=== PATIENT | female | born 1975 | race Caucasian/White ===

== ENCOUNTER 2016-12-11 00:30 | Emergency (ER) | payer OTHER ==
[2016-12-11 01:43] LABS: BASOPHIL 0.3 % (0-2); EOSINOPHIL 0.8 % (0-5); HCT 36.2 % (37.0-47.0); HGB 11.7 g/dl (12.5-16.0); LYMPHOCYTE 36.8 % (15-48); MCH 26.4 pg (25.0-31.0); MCHC 32.3 g/dL (32.0-36.0); MCV 81.7 fL (78.0-100.0); MONOCYTE 7.2 % (0-12); MPV 10.3 fL (6.0-9.5); NEUTROPHIL 54.9 % (41-80); PLT 274 K/uL (150-400); RBC 4.43 M/uL (4.20-5.40); RDW 13.2 % (11.5-14.0); WBC 7.8 K/uL (4.0-10.5)
[2016-12-11 01:54] LABS: ALBUMIN 4.5 g/dL (3.5-5.0); BILIRUBIN - TOTAL 0.2 mg/dL (0.1-1.0); GLOBULIN (CALCULATION) 2.4 g/dL (2.2-4.2); POTASSIUM 3.8 mmol/L (3.5-5.1); TOTAL PROTEIN 6.9 g/dL (6.4-8.3)
[2016-12-11 02:56] LABS: BILIRUBIN NEGATIVE (NEGATIVE); BLOOD TRACE-INTACT Ery/uL (NEGATIVE); CLARITY SLIGHTLY HAZY (CLEAR); COLOR YELLOW (YELLOW); GLUCOSE (U) NORMAL (NORMAL); KETONE (U) NEGATIVE (NEGATIVE); LEUKOCYTES TRACE Leu/uL (NEGATIVE); NITRITE NEGATIVE (NEGATIVE); PROTEIN NEGATIVE (NEGATIVE); SPECIFIC GRAVITY >=1.030 (1.001-1.030); UROBILINOGEN 0.2 mg/dL (0.2-1.0)
[2016-12-11 03:01] LABS: BACTERIA TRACE; URINARY RBC RARE; URINARY WBC RARE
[2016-12-11 03:03] LABS: AMPHETAMINES NEGATIVE (NEGATIVE); BARBITURATES NEGATIVE (NEGATIVE); BENZODIAZEPINES NEGATIVE (NEGATIVE); COCAINE NEGATIVE (NEGATIVE); MARIJUANA (THC) NEGATIVE (NEGATIVE); METHADONE NEGATIVE (NEGATIVE); TRICYCLIC ANTIDEPRESSANT NEGATIVE (NEGATIVE)
== END 2016-12-11 03:05 | disposition home or self-care (01) ==
LOC: FER 00:30
PROVIDERS: Emergency Medicine
DX: E86.0 Dehydration (principal); R07.9 Chest pain, unspecified; K21.9 Gastro-esophageal reflux disease without esophagitis; Z82.3 Family history of stroke; Z79.899 Other long term (current) drug therapy
CPT/HCPCS: 36415; 80053; 80305; 81001; 85025

== ENCOUNTER 2021-01-28 21:04 | Emergency (ER) | payer OTHER ==
[~2021-01-28 21:04] MED LIST: COLESTID1 GM PO; CYCLOBENZAPRINE10 MG PO; DILTIAZEM 24HR240 M1 PO; ESTRACE1 MG PO; ETODOLAC500 MG PO; IBUPROFEN800 MG PO; LEVAQUIN750 MG PO; PEPCID AC20 MG PO
[2021-01-28 22:17] LABS: BILIRUBIN NEGATIVE (NEGATIVE); BLOOD NEGATIVE Ery/uL (NEGATIVE); CLARITY CLEAR (CLEAR); COLOR YELLOW (YELLOW); GLUCOSE (U) NORMAL (NORMAL); LEUKOCYTES NEGATIVE Leu/uL (NEGATIVE); NITRITE NEGATIVE (NEGATIVE); PROTEIN NEGATIVE (NEGATIVE); SPECIFIC GRAVITY 1.025 (1.001-1.030); UROBILINOGEN 0.2 mg/dL (0.2-1.0); pH 5.5 (5.0-9.0)
[2021-01-29] MEDS ORDERED: NORCO 5-325 TA1 EACH PO (01:04)
[2021-01-29] MEDS ORDERED: COLACE100 MG PO (01:04)
== END 2021-01-29 01:15 | disposition home or self-care (01) ==
LOC: FER 21:04
PROVIDERS: Emergency Medicine Emergency Medical Services
DX: R10.9 Unspecified abdominal pain (principal); Z90.49 Acquired absence of other specified parts of digestive tract; Z98.890 Other specified postprocedural states; Z79.810 Long term (current) use of selective estrogen receptor modulators (SERMs); Z79.899 Other long term (current) drug therapy
CPT/HCPCS: 81003

== ENCOUNTER → 2021-04-28 | Day surgery (SDC) | payer OTHER ==
[~2021-04-28] VITALS: Ht 162.6 cm; Wt 86.2 kg
[~2021-04-28] MED LIST changes: +COLACE100 MG PO; +NORCO 5-325 TA1 EACH PO
[2021-04-28 07:48] LABS: HGB 12.7 g/dl (12.5-16.0); MCH 26.5 pg (25.0-31.0); MCHC 31.8 g/dL (32.0-36.0); MCV 83.3 fL (78.0-100.0); MPV 10.6 fL (6.0-9.5); RBC 4.8 M/uL (4.20-5.40); RDW 13.2 % (11.5-14.0); WBC 6.8 K/uL (4.0-10.5)
[2021-04-28 08:01] LABS: ALBUMIN 3.8 g/dL (3.4-5.0); BILIRUBIN - TOTAL 0.4 mg/dL (0.2-1.0); BUN/CREAT RATIO (CALC) 13.2 RATIO; CREATININE 0.76 mg/dL (0.51-0.95); GLOBULIN (CALCULATION) 3.8 g/dL; POTASSIUM 3.7 mmol/L (3.5-5.1); TOTAL PROTEIN 7.6 g/dL (6.4-8.2)
== END | disposition home or self-care (01) ==
LOC: FAS 06:57
PROVIDERS: Surgery
DX: R19.7 Diarrhea, unspecified (principal); Z80.0 Family history of malignant neoplasm of digestive organs; Z90.89 Acquired absence of other organs; Z90.49 Acquired absence of other specified parts of digestive tract
CPT/HCPCS: 36415; 80053; J2405; J2704; J7120

== ENCOUNTER 2021-10-05 15:08 | Emergency (ER) | payer OTHER ==
[2021-10-05 16:06] LABS: BASOPHIL 0.2 % (0-2); EOSINOPHIL 0.5 % (0-5); HGB 12.2 g/dl (12.5-16.0); LYMPHOCYTE 23.2 % (15-48); MCH 26.5 pg (25.0-31.0); MCHC 31.3 g/dL (32.0-36.0); MCV 84.6 fL (78.0-100.0); MONOCYTE 7.5 % (0-12); MPV 10.3 fL (6.0-9.5); NEUTROPHIL 68.4 % (41-80); NRBC 0; PLT 243 K/uL (150-400); RBC 4.61 M/uL (4.20-5.40); WBC 5.9 K/uL (4.0-10.5)
[2021-10-05 16:28] LABS: ALBUMIN 3.5 g/dL (3.4-5.0); BILIRUBIN - TOTAL 0.2 mg/dL (0.2-1.0); BUN/CREAT RATIO (CALC) 12.5 RATIO; CREATININE 0.8 mg/dL (0.51-0.95); GLOBULIN (CALCULATION) 3.6 g/dL; TOTAL PROTEIN 7.1 g/dL (6.4-8.2)
[2021-10-05] MEDS ORDERED: KLOR-CON M 1010 MEQ PO (18:32)
== END 2021-10-05 18:50 | disposition home or self-care (01) ==
LOC: FER 15:08
PROVIDERS: Physician Assistant
DX: R07.89 Other chest pain (principal); E87.6 Hypokalemia; Z28.310 Unvaccinated for COVID-19
CPT/HCPCS: 36415; 71045; 80053; 84484; 85025; 93005

== ENCOUNTER → 2021-10-25 | Day surgery (SDC) | payer OTHER ==
[~2021-10-25] VITALS: Ht 162.6 cm; Wt 85.3 kg
[~2021-10-25] MED LIST changes: +KLOR-CON M 1010 MEQ PO; +PRILOSEC20 MG PO
== END | disposition home or self-care (01) ==
LOC: FAS 08:32
DX: K29.80 Duodenitis without bleeding (principal); K21.9 Gastro-esophageal reflux disease without esophagitis; K29.60 Other gastritis without bleeding; R07.89 Other chest pain
CPT/HCPCS: J2704; J7120